=== PATIENT | female | born 1975 | race American Indian/Alaskan Native ===

== ENCOUNTER 2016-07-13 03:17 | Emergency (ER) | payer BC ==
[2016-07-13] MEDS ORDERED: MOTRIN PO ONE (04:10)
--- NOTE | 2016-07-13 07:27 | Emergency Department Report ---
Minor Respiratory - HPI Chief Complaint: Upper Respiratory Infection Stated Complaint: SORE THROAT/CONGESTION/EARACHE/COUGH Time Seen by Provider: 07/13/16 07:03 Duration: 3 Days Pain Location: Throat, Ear Severity: mild Minor Respiratory: Yes Rhinorrhea, Yes Sore Throat, Yes Able to Tolerate Fluids , Yes Ear Pain, Yes Cough, Yes Sick Contacts, Yes Fever, No Hemoptysis, No Chest Pain, No Shortness of Breath ED Review of Systems ROS: Stated complaint: SORE THROAT/CONGESTION/EARACHE/COUGH Other details as noted in HPI Constitutional: chills, fever, malaise Eyes: eye discharge. denies: eye pain, vision change ENT: ear pain, throat pain Respiratory: cough. denies: orthopnea, shortness of breath, SOB with exertion, SOB at rest, stridor, wheezing Cardiovascular: denies: chest pain, palpitations, dyspnea on exertion, orthopnea , edema, syncope, paroxysmal nocturnal dyspnea Endocrine: no symptoms reported Gastrointestinal: denies: abdominal pain, nausea, vomiting, diarrhea, constipation Genitourinary: denies: urgency, dysuria, frequency, hematuria, discharge, abnormal menses, dyspareunia Musculoskeletal: myalgia. denies: back pain, joint swelling, arthralgia Skin: denies: rash, lesions Neurological: headache. denies: weakness, numbness, paresthesias, confusion, vertigo Psychiatric: denies: anxiety, depression Hematological/Lymphatic: denies: easy bleeding, easy bruising ED Past Medical Hx - Past Medical History Previous Medical History?: No - Surgical History Additional Surgical History: x 2, marc in right leg - Social History Smoking Status: Never Smoker Substance Use Type: None - Medications Home Medications: Home Medications Medication Instructions Recorded Confirmed Last Taken Type HYDROcodone/APAP 5-325 [[place] 1 each PO Q6HR PRN #14 tablet 03/27/13 Unknown Rx 5-325 mg TAB] Ibuprofen [Motrin] 800 mg PO TID PRN #20 tablet 03/27/13 Unknown Rx predniSONE [Deltasone] 1 tab PO BID #8 tab 03/27/13 Unknown Rx ALBUTEROL Inhaler [ProAir HFA 2 puff IH QID PRN #1 inhalation 07/13/16 Unknown Rx Inhaler] Azithromycin [Zithromax Z-ROSE] 250 mg PO QDAY #6 tablet 07/13/16 Unknown Rx Prednisone [predniSONE 10 mg 10 mg PO .TAPER #1 tab.ds.pk 07/13/16 Unknown Rx (6-Day Pack, 21 Tabs)] Sulfacetm Na/Prednisol AC 2 drop OP QHS #1 drops.susp 07/13/16 Unknown Rx [Blephamide Eye Drops 10/0.2%] Minor Respiratory Exam - Exam General: Vital signs noted. No distress. Alert and acting appropriately. HEENT: Yes Pharyngeal Erythema, Yes Moist Mucous Membranes, Yes Conjuctival Injection, No Pharyngeal Exudates, No Rhinorrhea, No Frontal Tenderness, No Maxillary Tenderness Ear: Both EAC Pain, Neither TM Bulge, Neither TM Erythema, Neither EAC Discharge Neck: Yes Supple, No Adenopathy Lungs: Yes Good Air Exchange, No Wheezes, No Ronchi, No Stridor, No Cough, No Labored Respirations, No Retractions, No Use of Accessory Muscles, No Other Abnormal Lung Sounds Abdomen: No Tenderness, No Peritoneal Signs Skin: No Rash, No Edema Neurologic: Alert and oriented, no deficits. Patient's awake alert and oriented with no focal neuro deficit Musculoskeletal: Unremarkable. ED Course Vital Signs 07/13/16 04:02 Temperature 98.5 F Pulse Rate 76 Respiratory 16 Rate Blood Pressure 140/99 Blood Pressure 140/99 [Left] O2 Sat by Pulse 99 Oximetry Critical care attestation.: If time is entered above; I have spent that time in minutes in the direct care of this critically ill patient, excluding procedure time. ED Disposition Clinical Impression: URI (upper respiratory infection), Conjunctivitis, Pharyngitis Disposition: DISCHARGED TO HOME OR SELFCARE Is pt being admited?: No Condition: Stable Instructions: Conjunctivitis (ED), Upper Respiratory Infection (ED) Prescriptions: Sulfacetm Na/Prednisol AC [Blephamide Eye Drops 10/0.2%] 2 drop OP QHS #1 drops.susp ALBUTEROL Inhaler [ProAir HFA Inhaler] 2 puff IH QID PRN #1 inhalation PRN Reason: Shortness Of Breath Azithromycin [Zithromax Z-ROSE] 250 mg PO QDAY #6 tablet Prednisone [predniSONE 10 mg (6-Day Pack, 21 Tabs)] 10 mg PO .TAPER #1 tab.ds.pk Referrals: PRIMARY CARE, [Primary Care Provider] - 3-5 Days Forms: Work/School Release Form(ED)
[2016-07-13 08:13] VITALS: BP 155/100
== END 2016-07-13 08:12 | disposition home or self-care (01) ==
LOC: ED 03:17
DX: J06.9 Acute upper respiratory infection, unspecified (principal); H10.9 Unspecified conjunctivitis; J02.9 Acute pharyngitis, unspecified
CPT/HCPCS: 87116; 87430; 99282